=== PATIENT | male | born 1980 | race Caucasian/White ===

== ENCOUNTER 2016-12-03 08:23 | Inpatient (IN) | payer MEDICAID, OTHER ==
[~2016-12-03] VITALS: Ht 201.9 cm; Wt 158.8 kg
[2016-12-03] MEDS ORDERED: METHYLPREDNISOLONE SOD SUCC 125 MG/2 ML VIAL IV STA (09:06)
[2016-12-03] MEDS ORDERED: IPRATROPIUM/ALBUTEROL 0.5-3(2.5)MG/3ML NEB HHN ONE ×2 (09:15→10:00)
[2016-12-03 09:25] LABS: BASOPHILS % 0.5 % (0.0-2.0); EOSINOPHILS % 1.5 % (0.0-5.0); HEMATOCRIT. 45.4 % (42.0-52.0); HEMOGLOBIN. 14.8 g/dL (14.0-18.0); LYMPHOCYTES % 9.6 % (20.0-50.0); MEAN CORPUSCULAR HEMOGLOBIN 27.1 pg (28.0-32.0); MEAN CORPUSCULAR VOLUME 83.1 fL (80.0-94.0); MONOCYTES % 7.9 % (2.0-8.0); NEUTROPHILS % 80.5 % (40.0-76.0); PLATELET 220 x1000/uL (130-400); RED BLOOD CELL COUNT 5.47 mill/uL (4.7-6.1); RED CELL DISTRIBUTION WIDTH 15.6 % (11.6-14.6)
[2016-12-03 09:33] LABS: INR 1.1; PROTHROMBIN TIME 11.4 sec (9.4-11.6)
[2016-12-03 09:42] LABS: CARBON DIOXIDE 34 mEq/L (21-32); CHLORIDE 102 mEq/L (98-107)
[2016-12-03] MEDS ORDERED: MAGNESIUM 2 G PREMIX 50 ML IV ONE (10:15)
[2016-12-03 10:46] LABS: CLARITY URINE CLEAR (CLEAR); COLOR URINE YELLOW (YELLOW); GLUCOSE URINE NEGATIVE (NEGATIVE); KETONES URINE TRACE (NEGATIVE); LEUKOCYTE ESTERASE URINE TRACE (NEGATIVE); NITRITE URINE NEGATIVE (NEGATIVE); OCCULT BLOOD URINE NEGATIVE (NEGATIVE); PH URINE 7.5 (4.5-8.0); PROTEIN URINE TRACE (NEGATIVE); SPECIFIC GRAVITY URINE 1.024 (1.005-1.030)
[2016-12-03] MEDS ORDERED: SODIUM CHLORIDE 0.9% 1,000 ML IV ONE (11:18)
[2016-12-03] MEDS ORDERED: ALBUTEROL (0.083%) 2.5MG/3ML NEB HHN STA (11:18)
[2016-12-03] MEDS ORDERED: AZITHROMYCIN 500 MG in DEXT 5% WATER 250 ML IV ONE (11:30)
[2016-12-03] MEDS ORDERED: CEFTRIAXONE 1 G PREMIX 50 ML IV ONE (11:30)
[2016-12-03 12:39] LABS: BG BASE EXCESS 5.1 mmol/L (-2.0-2.0); BG CARBOXYHEMOGLOBIN 1.4 % (0.5-1.5); BG DEOXYHEMOGLOBIN 6.9 % (0.0-5.0); BG FRACTION INSPIRED OXYGEN 28; BG HCO3 ACT 31.5 mmol/L (22.0-26.0); BG METHEMOGLOBIN 0.3 % (0.0-1.5); BG OXYHEMOGLOBIN 91.4 % (94.0-97.0); BG PCO2 52.9 mmHg (35.0-45.0); BG PH 7.393 (7.350-7.450); BG PO2 62.7 mmHg (75.0-100.0); BG SAMPLE SITE RIGHT BRACHIAL; BG TOTAL HEMOGLOBIN 15.9 g/dL (12.0-18.0); BG VENT MODE NASAL CANNULA
[2016-12-03] MEDS ORDERED: ASPIRIN 81MG TABLET PO ONE (14:00)
[2016-12-03] MEDS ORDERED: DOCUSATE SODIUM 100MG CAPSULE PO PRN (17:30)
[2016-12-03] MEDS ORDERED: LORAZEPAM 2MG/ML CPJ IV PRN (17:30)
[2016-12-03] MEDS ORDERED: ONDANSETRON HCL 4MG/2ML VIAL IV PRN (17:30)
[2016-12-03] MEDS ORDERED: MAGNESIUM/ALUMINUM HYDROXIDE/SIMETHICONE 30ML UDC PO PRN (17:30)
[2016-12-03] MEDS ORDERED: NITROGLYCERIN 0.4MG TABLET SL SL PRN (17:30)
[2016-12-03] MEDS ORDERED: IPRATROPIUM/ALBUTEROL 0.5-3(2.5)MG/3ML NEB INH PRN (17:30)
[2016-12-03] MEDS ORDERED: CLONIDINE 0.1MG TABLET PO PRN (17:30)
[2016-12-03] MEDS ORDERED: DIPHENHYDRAMINE 50MG/ML VIAL IV PRN (17:30)
[2016-12-03] MEDS ORDERED: GUAIFENESIN 200MG/10ML SUGAR FREE UDC PO PRN (17:30)
[2016-12-03] MEDS ORDERED: KETOROLAC 15MG/ML VIAL IV PRN (18:00)
[2016-12-03] MEDS ORDERED: TRAMADOL 50MG TABLET PO PRN (19:30)
[2016-12-03 19:35] LABS: ETHANOL BLOOD < 10 mg/dL; HDL CHOLESTEROL 28 mg/dL (40-59); LDL CHOLESTEROL 80 mg/dL (5-100)
[2016-12-03 20:00] VITALS: BP 123/70
[2016-12-03] MEDS ORDERED: NA PHOS,M-B/NA PHOS,DI-BA ENEMA 118ML PR PRN (20:00)
[2016-12-03] MEDS ORDERED: ZOLPIDEM TARTRATE 5MG TABLET PO PRN (20:30)
[2016-12-03] MEDS: IPRATROPIUM/ALBUTEROL 0.5-3(2.5)MG/3ML NEB HHN SCH (21:41)
[2016-12-03] MEDS: METHYLPREDNISOLONE SOD SUCC 125 MG/2 ML VIAL IV SCH (22:43)
[2016-12-03] MEDS: FAMOTIDINE 20MG/2ML VIAL IV SCH (22:44)
[2016-12-03 23:05] VITALS: BP 123/70
[2016-12-03 23:40] LABS: CREATINE KINASE MB FRACTION 1.8 ng/mL (0.5-3.6); TROPONIN I 0.03 ng/mL (0.00-0.04)
[2016-12-03] MEDS ORDERED: ECON15CR11 TP (23:46)
[2016-12-03] MEDS ORDERED: PSYL540P PO (23:46)
[2016-12-03] MEDS ORDERED: FLUO40CA49 PO (23:46)
[2016-12-03] MEDS ORDERED: FISH1CAP2 PO (23:46)
[2016-12-03] MEDS ORDERED: OMEP20CA10 PO (23:46)
[2016-12-03] MEDS ORDERED: DOCU-150 PO (23:46)
[2016-12-03] MEDS ORDERED: SIMV10TA6 PO (23:46)
[2016-12-03] MEDS ORDERED: CLOZ100T31 PO (23:46)
[2016-12-03] MEDS ORDERED: TERB12GE TP (23:46)
[2016-12-03] MEDS ORDERED: LITH600C PO (23:46)
[2016-12-03] MEDS ORDERED: LACT10SO6 MT (23:46)
[2016-12-03] MEDS ORDERED: ENAL5TAB PO (23:46)
[2016-12-03] MEDS ORDERED: METF10002 PO (23:46)
[2016-12-03] MEDS ORDERED: ALBU90AE IH (23:46)
[2016-12-04] VITALS: BP 110/71
[2016-12-04 00:24] VITALS: BP 110/71
[2016-12-04] MEDS: IPRATROPIUM/ALBUTEROL 0.5-3(2.5)MG/3ML NEB HHN SCH ×4 (01:14→12:25)
[2016-12-04 04:00] VITALS: BP 115/81
[2016-12-04] MEDS: METHYLPREDNISOLONE SOD SUCC 125 MG/2 ML VIAL IV SCH (05:04)
[2016-12-04 07:17] LABS: CREATINE KINASE 53 IU/L (39-308); CREATINE KINASE MB FRACTION 1.5 ng/mL (0.5-3.6); TROPONIN I < 0.02 ng/mL (0.00-0.04)
[2016-12-04 07:59] LABS: *AMPHETAMINES SCREEN URINE NEGATIVE (NEGATIVE); *BARBITURATES SCREEN URINE NEGATIVE (NEGATIVE); *BENZODIAZEPINES SCREEN URINE NEGATIVE (NEGATIVE); *COCAINE SCREEN URINE NEGATIVE (NEGATIVE); CANNABINOID URINE SCREEN NEGATIVE (NEGATIVE); METHADONE URINE SCREEN NEGATIVE (NEGATIVE); OPIATES URINE SCREEN NEGATIVE (NEGATIVE); PHENCYCLIDINE URINE SCREEN NEGATIVE (NEGATIVE)
[2016-12-04 08:00] VITALS: BP 133/75
[2016-12-04] MEDS ORDERED: ENOXAPARIN 40MG/0.4ML SYR SUBCUT SCH (09:00)
[2016-12-04] MEDS ORDERED: ASPIRIN 325MG EC TABLET PO SCH (09:00)
[2016-12-04] MEDS: FAMOTIDINE 20MG/2ML VIAL IV SCH (10:50)
[2016-12-04 11:37] VITALS: BP 133/75
[2016-12-04] MEDS ORDERED: CEFTRIAXONE 1 G PREMIX 50 ML IV SCH (12:00)
[2016-12-04 12:18] VITALS: BP 146/89
[2016-12-04] MEDS ORDERED: AZITHROMYCIN 500 MG in DEXT 5% WATER 250 ML IV SCH (13:00)
== END 2016-12-04 12:45 | disposition home or self-care (01) | DRG 140 ==
LOC: ER 08:23 → 6WST 14:25 → ENRESERV 19:05
PROVIDERS: ADMIT Internal Medicine; ATTEND Internal Medicine
DX: J44.1 Chronic obstructive pulmonary disease with (acute) exacerbation (principal); J45.901 Unspecified asthma with (acute) exacerbation; I10 Essential (primary) hypertension; N39.0 Urinary tract infection, site not specified; F79 Unspecified intellectual disabilities; F20.9 Schizophrenia, unspecified; F17.200 Nicotine dependence, unspecified, uncomplicated; Z88.6 Allergy status to analgesic agent; Z88.8 Allergy status to other drugs, medicaments and biological substances
CPT/HCPCS: 36415; 36600; 71010; 80053; 80061; 80305; 81001; 82375; 82550; 82553; 82805; 83036; 83605; 83880; 84484; 85025; 85610; 87040; 87086; 93005; 94640; 96365; 96366; 96368; 96375; 99285; G0482; J0456; J0696; J1650; J2930; J3475; J3490; J7030; J7060; J7611; J7620; A4315

== ENCOUNTER 2017-10-05 09:29 | Inpatient (IN) | payer SELFPAY ==
[~2017-10-05] VITALS: Ht 200.7 cm; Wt 164.2 kg
[~2017-10-05 09:29] MED LIST: ALBU90AE IH; CLOZ100T31 PO; DOCU-150 PO; ECON15CR11 TP; ENAL5TAB PO; FISH1CAP2 PO; FLUO40CA49 PO; LACT10SO6 MT; LITH600C PO; METF10004 PO; OMEP20CA10 PO; PSYL540P PO; SIMV10TA6 PO; TERB12GE TP
[2017-10-05 10:13] LABS: BASOPHILS % 1.2 % (0.0-2.0); EOSINOPHILS % 2.8 % (0.0-5.0); HEMATOCRIT. 46.9 % (42.0-52.0); HEMOGLOBIN. 15.6 g/dL (14.0-18.0); LYMPHOCYTES % 17.5 % (20.0-50.0); MEAN CORPUSCULAR HEMOGLOBIN 28.2 pg (28.0-32.0); MEAN CORPUSCULAR VOLUME 84.9 fL (80.0-94.0); MEAN PLATELET VOLUME 8.8 fl (7.4-10.4); MONOCYTES % 6.2 % (2.0-8.0); NEUTROPHILS % 72.3 % (40.0-76.0); PLATELET 237 x1000/uL (130-400); RED BLOOD CELL COUNT 5.53 mill/uL (4.7-6.1); RED CELL DISTRIBUTION WIDTH 15.5 % (11.6-14.6)
[2017-10-05 10:21] LABS: PROTHROMBIN TIME 10.7 sec (9.4-11.6)
[2017-10-05 10:22] LABS: CHLORIDE 108 mEq/L (98-107)
[2017-10-05] MEDS ORDERED: IPRATROPIUM BROMIDE (0.02%) 0.5MG/2.5ML NEB HHN STA (11:42)
[2017-10-05] MEDS ORDERED: LACTULOSE 20G/30ML UDC PO ONE (11:45)
[2017-10-05] MEDS: ENALAPRIL 5MG TABLET PO SCH ×2 (13:50→21:39)
[2017-10-05] MEDS ORDERED: CLONIDINE 0.1MG TABLET PO PRN (17:45)
[2017-10-05] MEDS ORDERED: GUAIFENESIN 200MG/10ML SUGAR FREE UDC PO PRN (17:45)
[2017-10-05] MEDS ORDERED: LORAZEPAM 2MG/ML CPJ IV PRN (17:45)
[2017-10-05] MEDS ORDERED: DIPHENHYDRAMINE 50MG/ML VIAL IV PRN (17:45)
[2017-10-05] MEDS ORDERED: ONDANSETRON HCL 4MG/2ML VIAL IV PRN ×2 (17:45→20:00)
[2017-10-05] MEDS ORDERED: DEXTROSE 50% WATER 50ML SYRINGE IV PRN (17:45)
[2017-10-05] MEDS ORDERED: MAGNESIUM/ALUMINUM HYDROXIDE/SIMETHICONE 30ML UDC PO PRN (17:45)
[2017-10-05] MEDS ORDERED: IPRATROPIUM/ALBUTEROL 0.5-3(2.5)MG/3ML NEB INH PRN (17:45)
[2017-10-05 20:00] VITALS: BP 123/85
[2017-10-05] MEDS ORDERED: ONDANSETRON 4MG ODT PO PRN (20:15)
[2017-10-05 21:00] VITALS: BP 123/85
[2017-10-05] MEDS ORDERED: ENALAPRIL 5MG TABLET PO SCH (21:00)
[2017-10-05] MEDS: INSULIN LISPRO 100 UNITS/ML SUBCUT SCH (21:00)
[2017-10-05] MEDS: BLOOD SUGAR DIAGNOSTIC STRIP TEST SCH (21:20)
[2017-10-05] MEDS: SODIUM CHLORIDE 0.9% INJ 3ML FLUSH IVF SCH (21:40)
[2017-10-06] VITALS: BP 118/77
[2017-10-06 04:00] VITALS: BP 143/70
[2017-10-06] MEDS: INSULIN LISPRO 100 UNITS/ML SUBCUT SCH ×2 (06:33→12:15)
[2017-10-06] MEDS: BLOOD SUGAR DIAGNOSTIC STRIP TEST SCH ×3 (06:33→16:45)
[2017-10-06] MEDS: SODIUM CHLORIDE 0.9% INJ 3ML FLUSH IVF SCH ×2 (06:59→12:19)
[2017-10-06 08:00] VITALS: BP 126/88
[2017-10-06] MEDS: ENALAPRIL 5MG TABLET PO SCH ×2 (08:40→12:11)
[2017-10-06] MEDS ORDERED: FLUOXETINE HCL 20MG CAPSULE PO SCH (09:00)
[2017-10-06 12:00] VITALS: BP_SYST 129; BP_SYST 134; BP_SYST 149; BP_DIAS 68; BP_DIAS 76; BP_DIAS 79
[2017-10-06 16:03] VITALS: BP 124/73
[2017-10-06 16:56] VITALS: BP 124/73
== END 2017-10-06 17:35 | disposition home or self-care (01) | DRG 48 ==
LOC: ER 09:35 → 5WST 11:55 → ENRESERV 15:49 → ER 19:53
PROVIDERS: ADMIT Internal Medicine; ATTEND Internal Medicine
DX: G90.8 Other disorders of autonomic nervous system (principal); I10 Essential (primary) hypertension; E11.9 Type 2 diabetes mellitus without complications; E78.00 Pure hypercholesterolemia, unspecified; K59.00 Constipation, unspecified; J44.9 Chronic obstructive pulmonary disease, unspecified; Z72.0 Tobacco use; Z88.6 Allergy status to analgesic agent; Z88.8 Allergy status to other drugs, medicaments and biological substances; Z86.19 Personal history of other infectious and parasitic diseases; Z79.899 Other long term (current) drug therapy
CPT/HCPCS: 36415; 70450; 71045; 72125; 73600; 80053; 82962; 83036; 83880; 84484; 85025; 85610; 93005; 93970; 99285

== ENCOUNTER 2019-10-21 15:29 | Inpatient (IN) | payer MEDICAID ==
[~2019-10-21] VITALS: Ht 205.7 cm; Wt 137.4 kg
[~2019-10-21 15:29] MED LIST changes: -ECON15CR11 TP; +ECON15CR4 TP; +METF-416 PO; -METF10004 PO; -OMEP20CA10 PO; +OMEP20CA14 PO; -SIMV10TA6 PO; +SIMV10TA97 PO
[2019-10-21] MEDS ORDERED: ONDANSETRON HCL 4MG/2ML INJ IV STA (16:11)
[2019-10-21] MEDS ORDERED: SODIUM CHLORIDE 0.9% 1,000 ML IV ONE (16:11)
[2019-10-21] MEDS ORDERED: FAMOTIDINE 20MG/2ML VIAL IV ONE (17:15)
[2019-10-21 17:46] LABS: HEMOGLOBIN. 15.6 g/dL (14.0-18.0); MEAN CORPUSCULAR HEMOGLOBIN 28.5 pg (28.0-32.0); MEAN CORPUSCULAR VOLUME 86.1 fL (80.0-94.0); MEAN PLATELET VOLUME 8.9 fl (7.4-10.4); PLATELET 248 x1000/uL (130-400); RED BLOOD CELL COUNT 5.46 mill/uL (4.7-6.1); RED CELL DISTRIBUTION WIDTH 14.5 % (11.6-14.6)
[2019-10-21 17:55] LABS: CHLORIDE 108 mEq/L (98-107)
[2019-10-21 17:56] LABS: D-DIMER 1.3 mg/L FEU (<0.50); INR 1.1; PROTHROMBIN TIME 11.9 sec (9.6-11.0)
[2019-10-21 18:18] LABS: PLATELET ESTIMATE NORMAL
[2019-10-21 18:32] LABS: ETHANOL BLOOD < 10 mg/dL
[2019-10-21 18:36] LABS: CREATINE KINASE 54 IU/L (39-308)
[2019-10-21] MEDS ORDERED: PIPERACILLIN/TAZ 3.375G PREMIX 50 ML IV ONE (19:45)
[2019-10-21] MEDS: ONDANSETRON HCL 4MG/2ML INJ IV PRN (20:50)
[2019-10-21] MEDS ORDERED: FAMOTIDINE 20MG TABLET PO SCH (21:00)
[2019-10-22 05:33] LABS: CLARITY URINE CLEAR (CLEAR); COLOR URINE YELLOW (YELLOW); KETONES URINE TRACE (NEGATIVE); LEUKOCYTE ESTERASE URINE 1+ (NEGATIVE); NITRITE URINE NEGATIVE (NEGATIVE); OCCULT BLOOD URINE NEGATIVE (NEGATIVE); PH URINE 8.5 (4.5-8.0); PROTEIN URINE TRACE (NEGATIVE); SPECIFIC GRAVITY URINE 1.021 (1.005-1.030)
[2019-10-22] MEDS: ONDANSETRON HCL 4MG/2ML INJ IV PRN (05:42)
[2019-10-22 05:45] VITALS: BP 135/78
[2019-10-22 05:46] VITALS: BP 135/78
[2019-10-22 05:49] LABS: *AMPHETAMINES SCREEN URINE NEGATIVE (NEGATIVE)
[2019-10-22 05:50] LABS: *BARBITURATES SCREEN URINE NEGATIVE (NEGATIVE); *BENZODIAZEPINES SCREEN URINE NEGATIVE (NEGATIVE); *COCAINE SCREEN URINE NEGATIVE (NEGATIVE); CANNABINOID URINE SCREEN NEGATIVE (NEGATIVE); METHADONE URINE SCREEN NEGATIVE (NEGATIVE); OPIATES URINE SCREEN NEGATIVE (NEGATIVE); PHENCYCLIDINE URINE SCREEN NEGATIVE (NEGATIVE)
[2019-10-22] MEDS ORDERED: ATROV INH (06:16)
[2019-10-22] MEDS ORDERED: BECL10.62 INH (06:16)
[2019-10-22] MEDS ORDERED: MELA3TAB71 MT (06:16)
[2019-10-22] MEDS ORDERED: CLOZ100T31 MT (06:17)
[2019-10-22 08:00] VITALS: BP 130/74
[2019-10-22 09:22] LABS: HEMATOCRIT. 47.8 % (42.0-52.0); MEAN CORPUSCULAR HEMOGLOBIN 28.9 pg (28.0-32.0); MEAN CORPUSCULAR VOLUME 86.2 fL (80.0-94.0); MEAN PLATELET VOLUME 8.8 fl (7.4-10.4); PLATELET 252 x1000/uL (130-400); RED BLOOD CELL COUNT 5.54 mill/uL (4.7-6.1); RED CELL DISTRIBUTION WIDTH 14.5 % (11.6-14.6)
[2019-10-22 09:34] LABS: CHLORIDE 108 mEq/L (98-107)
[2019-10-22] MEDS: PANTOPRAZOLE SODIUM 40 MG/VIAL IV SCH (10:24)
[2019-10-22] MEDS: PIPERACILLIN/TAZOBACTAM 3.375 G in DEXT 5% WATER 100 ML IV SCH ×3 (10:24→21:30)
[2019-10-22] MEDS: ENOXAPARIN 150MG/ML SYR SUBCUT SCH ×2 (10:24→21:30)
[2019-10-22 12:00] VITALS: BP 141/81
[2019-10-22 12:16] LABS: PLATELET ESTIMATE NORMAL
[2019-10-22 16:00] VITALS: BP 131/79
[2019-10-22 20:00] VITALS: BP 132/77
[2019-10-22] MEDS ORDERED: IOHEXOL-350 100 ML BOTTLE ONE (23:17)
[2019-10-23] VITALS (7 sets, daily range): BP systolic 99–132; BP diastolic 43–86
[2019-10-23] MEDS: PIPERACILLIN/TAZOBACTAM 3.375 G in DEXT 5% WATER 100 ML IV SCH ×3 (04:40→16:00)
[2019-10-23 06:49] LABS: BASOPHILS % 0.9 % (0.0-2.0); EOSINOPHILS % 2.1 % (0.0-5.0); HEMATOCRIT. 41.6 % (42.0-52.0); HEMOGLOBIN. 14.2 g/dL (14.0-18.0); LYMPHOCYTES % 24.7 % (20.0-50.0); MEAN CORPUSCULAR HEMOGLOBIN 29.1 pg (28.0-32.0); MEAN CORPUSCULAR VOLUME 85.4 fL (80.0-94.0); MEAN PLATELET VOLUME 8.7 fl (7.4-10.4); MONOCYTES % 10.6 % (2.0-8.0); NEUTROPHILS % 61.7 % (40.0-76.0); PLATELET 229 x1000/uL (130-400); RED BLOOD CELL COUNT 4.87 mill/uL (4.7-6.1); RED CELL DISTRIBUTION WIDTH 14.1 % (11.6-14.6)
[2019-10-23 07:14] LABS: CHLORIDE 111 mEq/L (98-107)
[2019-10-23] MEDS: PANTOPRAZOLE SODIUM 40 MG/VIAL IV SCH (10:31)
[2019-10-23] MEDS: ENOXAPARIN 150MG/ML SYR SUBCUT SCH (13:39)
[2019-10-23] MEDS ORDERED: FAMOTIDINE 20MG/2ML VIAL IV SCH (21:00)
== END 2019-10-23 21:10 | disposition home health service (06) | DRG 720 ==
LOC: ER 15:34 → EDBEDREQTM 18:07 → EDBEDREQ 18:07 → MICUSO 18:41 → EDBEDREQ 18:48 → EDBEDREQTM 18:48 → 7WST 10-22 03:24 → 5WST 10-22 13:38
PROVIDERS: ADMIT Internal Medicine; ATTEND Internal Medicine
DX: A41.9 Sepsis, unspecified organism (principal); E87.8 Other disorders of electrolyte and fluid balance, not elsewhere classified; J44.1 Chronic obstructive pulmonary disease with (acute) exacerbation; B19.10 Unspecified viral hepatitis B without hepatic coma; J96.00 Acute respiratory failure, unspecified whether with hypoxia or hypercapnia; K74.60 Unspecified cirrhosis of liver; R18.8 Other ascites; E11.9 Type 2 diabetes mellitus without complications; B19.20 Unspecified viral hepatitis C without hepatic coma; E78.5 Hyperlipidemia, unspecified; I10 Essential (primary) hypertension; Z20.828 Contact with and (suspected) exposure to other viral communicable diseases; K52.9 Noninfective gastroenteritis and colitis, unspecified; Z88.6 Allergy status to analgesic agent; Z88.8 Allergy status to other drugs, medicaments and biological substances; Z79.899 Other long term (current) drug therapy; N39.0 Urinary tract infection, site not specified; K56.7 Ileus, unspecified
CPT/HCPCS: 36415; 71045; 71275; 74176; 80048; 80053; 80305; 80320; 81003; 82550; 82728; 82962; 83605; 83615; 83880; 84145; 84484; 85025; 85379; 85384; 86140; 87635; 87804; 93005; 93970; 99285; C9113; J1650; J2405; J2543; J3490; J7030; J7060; Q9967; G0480

== ENCOUNTER 2022-04-29 14:43 | Inpatient (IN) | payer MEDICAID ==
[~2022-04-29] VITALS: Ht 200.7 cm; Wt 127.9 kg
[~2022-04-29 14:43] MED LIST changes: +ATROV INH; +BECL10.62 INH; +CLOZ100T13 MT; +CLOZ100T13 PO; -CLOZ100T31 PO; -ENAL5TAB PO; +ENAL5TAB21 PO; +MELA3TAB71 MT
[2022-04-29] MEDS ORDERED: ONDANSETRON HCL 4MG/2ML INJ IV ONE (17:30)
[2022-04-29] MEDS ORDERED: SODIUM CHLORIDE 0.9% 1,000 ML IV ONE (17:30)
[2022-04-29] MEDS ORDERED: MORPHINE SULFATE 2 MG/ML CPJ (NOT FOR IM USE) IV ONE (17:30)
[2022-04-29 18:16] LABS: HEMOGLOBIN. 17.9 g/dL (14.0-18.0); MEAN CORPUSCULAR HEMOGLOBIN 29.5 pg (28.0-32.0); MEAN CORPUSCULAR VOLUME 87.3 fL (80.0-94.0); MEAN PLATELET VOLUME 8.9 fl (7.4-10.4); PLATELET 256 x1000/uL (130-400); RED BLOOD CELL COUNT 6.07 mill/uL (4.7-6.1); RED CELL DISTRIBUTION WIDTH 14.7 % (11.6-14.6)
[2022-04-29 18:18] LABS: CHLORIDE 108 mEq/L (98-107)
[2022-04-29] MEDS ORDERED: PIPERACILLIN/TAZ 3.375G PREMIX 50 ML IV NR (18:45)
[2022-04-29] MEDS ORDERED: PIPERACILLIN/TAZOBACTAM 3.375GM/50ML PREMIX IV ONE (18:45)
[2022-04-29 19:38] LABS: PLATELET ESTIMATE NORMAL
[2022-04-29] MEDS ORDERED: MORPHINE SULFATE 4 MG/ML CPJ (NOT FOR IM USE) IV ONE (19:45)
[2022-04-30] MEDS ORDERED: ONDANSETRON HCL 4MG/2ML INJ ONE (00:41)
[2022-04-30] MEDS ORDERED: MORPHINE SULFATE 4 MG/ML CPJ (NOT FOR IM USE) IV NR (00:45)
[2022-04-30] MEDS ORDERED: SODIUM CHLORIDE 0.9% 100 ML IV ONE (01:00)
[2022-04-30] MEDS ORDERED: ONDANSETRON HCL 4MG/2ML INJ IV ONE (01:00)
[2022-04-30 08:00] VITALS: BP 115/67
[2022-04-30 09:27] VITALS: BP 115/67
[2022-04-30 10:12] LABS: BASOPHILS % 0.1 % (0.0-2.0); EOSINOPHILS % 0.5 % (0.0-5.0); HEMATOCRIT. 48.7 % (42.0-52.0); HEMOGLOBIN. 16.5 g/dL (14.0-18.0); LYMPHOCYTES % 9.2 % (20.0-50.0); MEAN CORPUSCULAR HEMOGLOBIN 29.8 pg (28.0-32.0); MEAN CORPUSCULAR VOLUME 88.2 fL (80.0-94.0); MEAN PLATELET VOLUME 8.5 fl (7.4-10.4); MONOCYTES % 10.9 % (2.0-8.0); NEUTROPHILS % 79.3 % (40.0-76.0); PLATELET 247 x1000/uL (130-400); RED BLOOD CELL COUNT 5.52 mill/uL (4.7-6.1); RED CELL DISTRIBUTION WIDTH 14.5 % (11.6-14.6)
[2022-04-30 12:00] VITALS: BP 140/89
[2022-04-30] MEDS: DEXT 5%/0.45% NACL 1000ML 1,000 ML IV SCH ×2 (12:30→21:09)
[2022-04-30] MEDS ORDERED: ACETAMINOPHEN 325MG TABLET PO PRN (12:30)
[2022-04-30] MEDS ORDERED: PIPERACILLIN/TAZ 3.375G PREMIX 50 ML IV SCH (12:30)
[2022-04-30] MEDS ORDERED: IPRATROPIUM/ALBUTEROL 0.5-3(2.5)MG/3ML NEB NEB PRN ×2 (12:30)
[2022-04-30] MEDS ORDERED: ONDANSETRON HCL 4MG/2ML INJ IV PRN (12:30)
[2022-04-30] MEDS ORDERED: ALBUTEROL (0.083%) 2.5MG/3ML NEB HHN PRN (13:00)
[2022-04-30] MEDS ORDERED: NALOXONE HCL 0.4MG/ML VIAL IV PRN (13:00)
[2022-04-30] MEDS ORDERED: IPRATROPIUM BROMIDE (0.02%) 0.5MG/2.5ML NEB HHN PRN (13:00)
[2022-04-30] MEDS ORDERED: DEXTROSE 50% WATER 50ML SYRINGE IV PRN (13:00)
[2022-04-30 16:00] VITALS: BP 117/66
[2022-04-30] MEDS: PIPERACILLIN/TAZOBACTAM 3.375G in DEXT 5% WATER 50ML IV SCH ×2 (16:04→21:08)
[2022-04-30] MEDS: ENOXAPARIN 30MG/0.3ML SYR SUBCUT SCH ×2 (16:05→22:51)
[2022-04-30] MEDS: BLOOD SUGAR DIAGNOSTIC STRIP TEST SCH ×2 (17:20→21:07)
[2022-04-30] MEDS: INSULIN LISPRO 100 UNITS/ML SUBCUT SCH ×2 (17:50→21:00)
[2022-04-30 20:00] VITALS: BP 130/80
[2022-05-01] VITALS (7 sets, daily range): BP systolic 114–135; BP diastolic 66–85
[2022-05-01] MEDS: DEXT 5%/0.45% NACL 1000ML 1,000 ML IV SCH ×2 (04:30→12:30)
[2022-05-01] MEDS: PIPERACILLIN/TAZOBACTAM 3.375G in DEXT 5% WATER 50ML IV SCH ×2 (05:36→17:50)
[2022-05-01] MEDS: BLOOD SUGAR DIAGNOSTIC STRIP TEST SCH ×3 (06:26→18:01)
[2022-05-01 07:06] LABS: BASOPHILS % 0.6 % (0.0-2.0); EOSINOPHILS % 1.8 % (0.0-5.0); LYMPHOCYTES % 18.7 % (20.0-50.0); MEAN CORPUSCULAR HEMOGLOBIN 29.8 pg (28.0-32.0); MEAN CORPUSCULAR VOLUME 89.1 fL (80.0-94.0); MONOCYTES % 11.3 % (2.0-8.0); NEUTROPHILS % 67.6 % (40.0-76.0); PLATELET 218 x1000/uL (130-400); RED BLOOD CELL COUNT 5.05 mill/uL (4.7-6.1); RED CELL DISTRIBUTION WIDTH 14.3 % (11.6-14.6)
[2022-05-01] MEDS: INSULIN LISPRO 100 UNITS/ML SUBCUT SCH ×3 (07:45→17:50)
[2022-05-01 07:50] LABS: CHLORIDE 117 mEq/L (98-107)
[2022-05-01] MEDS: ENOXAPARIN 30MG/0.3ML SYR SUBCUT SCH (08:43)
[2022-05-01] MEDS ORDERED: PANTOPRAZOLE SODIUM 40 MG/VIAL IV SCH (09:00)
[2022-05-01] MEDS ORDERED: LEVO-65 MT (17:33)
== END 2022-05-01 20:10 | disposition home or self-care (01) | DRG 247 ==
LOC: ER 14:43 → 6EST 22:55 → EDBEDREQ 22:58 → EDBEDREQTM 22:58
PROVIDERS: ADMIT Internal Medicine; ATTEND Internal Medicine
DX: K56.609 Unspecified intestinal obstruction, unspecified as to partial versus complete obstruction (principal); R65.10 Systemic inflammatory response syndrome (SIRS) of non-infectious origin without acute organ dysfunction; E11.9 Type 2 diabetes mellitus without complications; I10 Essential (primary) hypertension; F17.210 Nicotine dependence, cigarettes, uncomplicated; J44.9 Chronic obstructive pulmonary disease, unspecified; K21.9 Gastro-esophageal reflux disease without esophagitis; Z88.8 Allergy status to other drugs, medicaments and biological substances; Z79.899 Other long term (current) drug therapy
CPT/HCPCS: 36415; 71045; 74018; 74176; 80053; 82962; 83036; 85025; 93970; 99291; C9113; J1650; J2270; J2405; J2543; J7030; J7050; J7060

== ENCOUNTER 2024-11-17 15:48 | Emergency (ER) | payer MEDICAID ==
[~2024-11-17] VITALS: Ht 200.7 cm; Wt 122.0 kg
[~2024-11-17 15:48] MED LIST changes: -DOCU-150 PO; +DOCU-422 PO; +ENAL-75 PO; -ENAL5TAB21 PO; +LACT-394 MT; -LACT10SO6 MT; +LEVO-65 MT
[2024-11-17 15:59] VITALS: O2SAT 96
[2024-11-17 16:25] LABS: BASOPHILS % 1.2 % (0.0-2.0); EOSINOPHILS % 1.2 % (0.0-5.0); HEMATOCRIT. 43.9 % (42.0-52.0); HEMOGLOBIN. 14.9 g/dL (14.0-18.0); LYMPHOCYTES % 22.0 % (20.0-50.0); MEAN PLATELET VOLUME 8.0 fl (7.4-10.4); MONOCYTES % 9.0 % (2.0-8.0); NEUTROPHILS % 66.6 % (40.0-76.0); PLATELET 203 x1000/uL (130-400); RED BLOOD CELL COUNT 5.03 mill/uL (4.7-6.1); RED CELL DISTRIBUTION WIDTH 14.7 % (11.6-14.6)
[2024-11-17 16:38] LABS: CREATININE 1.0 mg/dL (0.6-1.3); UREA NITROGEN BLOOD 10 mg/dL (9-23)
[2024-11-17] MEDS ORDERED: MORPHINE SULFATE 4 MG/ML INJ (FOR IV/IM USE) IV SCH (18:00)
[2024-11-17] MEDS ORDERED: ONDANSETRON HCL 4MG/2ML INJ IV SCH (18:00)
[2024-11-17] MEDS: ONDANSETRON 4MG ODT PO ONE (18:39)
[2024-11-17] MEDS: OXYCODONE HCL 5MG TABLET PO ONE ×2 (18:53→21:44)
[2024-11-17] MEDS: DIATR MEGLU/DIATRIZOATE SOLN 30ML ONE (19:36)
[2024-11-17 23:02] VITALS: BP 124/74; PULSE 70; RESP 12; TEMP 36.9; O2SAT 96
[2024-11-18 16:26] LABS: CLARITY URINE CLEAR (CLEAR); COLOR URINE YELLOW (YELLOW); GLUCOSE URINE NEGATIVE (NEGATIVE); KETONES URINE NEGATIVE (NEGATIVE); LEUKOCYTE ESTERASE URINE NEGATIVE (NEGATIVE); NITRITE URINE NEGATIVE (NEGATIVE); OCCULT BLOOD URINE NEGATIVE (NEGATIVE); PH URINE 7.0 (4.5-8.0); PROTEIN URINE NEGATIVE (NEGATIVE); SPECIFIC GRAVITY URINE 1.006 (1.005-1.030); UROBILINOGEN URINE 0.2 E.U./dL (0.2-1.0)
[2024-11-18] MEDS ORDERED: HYDR453.3 TP (18:37)
== END 2024-11-17 23:11 | disposition home or self-care (01) ==
LOC: ER 15:48
DX: R10.31 Right lower quadrant pain (principal); J44.89 Other specified chronic obstructive pulmonary disease; F12.90 Cannabis use, unspecified, uncomplicated; Z79.899 Other long term (current) drug therapy; Z79.84 Long term (current) use of oral hypoglycemic drugs; Z79.51 Long term (current) use of inhaled steroids; Z91.018 Allergy to other foods; Z88.6 Allergy status to analgesic agent
CPT/HCPCS: 99284; 74176; 80048; 81003; 85025; 36415; Q0162; Q9963

== ENCOUNTER 2024-11-18 14:56 | Emergency (ER) | payer MEDICAID ==
[~2024-11-18] VITALS: Ht 200.7 cm; Wt 109.0 kg
[2024-11-18 15:08] VITALS: O2SAT 98
[2024-11-18 17:16] LABS: BASOPHILS % 1.4 % (0.0-2.0); EOSINOPHILS % 2.0 % (0.0-5.0); HEMATOCRIT. 44.7 % (42.0-52.0); HEMOGLOBIN. 15.3 g/dL (14.0-18.0); LYMPHOCYTES % 23.7 % (20.0-50.0); MEAN PLATELET VOLUME 8.2 fl (7.4-10.4); MONOCYTES % 10.2 % (2.0-8.0); NEUTROPHILS % 62.7 % (40.0-76.0); PLATELET 199 x1000/uL (130-400); RED BLOOD CELL COUNT 5.15 mill/uL (4.7-6.1); RED CELL DISTRIBUTION WIDTH 14.7 % (11.6-14.6)
[2024-11-18 17:29] LABS: CREATININE 1.0 mg/dL (0.6-1.3); UREA NITROGEN BLOOD 12 mg/dL (9-23)
[2024-11-18 17:31] LABS: ASPARTATE AMINOTRANSFERASE 28 IU/L (<34); BILIRUBIN TOTAL 0.6 mg/dL (0.1-1.0); PROTEIN TOTAL 7.4 g/dL (6.0-8.3)
[2024-11-18] MEDS ORDERED: HYDR453.3 TP (18:37)
[2024-11-18 18:52] VITALS: BP 132/80; PULSE 72; RESP 16; TEMP 36.7; O2SAT 100
== END 2024-11-18 18:53 | disposition home or self-care (01) ==
LOC: ER 14:56
DX: K62.5 Hemorrhage of anus and rectum (principal); J44.89 Other specified chronic obstructive pulmonary disease; F12.90 Cannabis use, unspecified, uncomplicated; Z79.51 Long term (current) use of inhaled steroids; Z79.84 Long term (current) use of oral hypoglycemic drugs; Z79.899 Other long term (current) drug therapy; Z88.6 Allergy status to analgesic agent; Z91.018 Allergy to other foods
CPT/HCPCS: 36415; 80053; 82270; 85025; 86850; 86900; 99283

== ENCOUNTER 2025-02-03 14:46 | Emergency (ER) | payer MEDICAID, OTHER ==
[~2025-02-03] VITALS: Ht 200.7 cm; Wt 130.0 kg
[~2025-02-03 14:46] MED LIST changes: +HYDR453.3 TP
[2025-02-03 15:02] VITALS: O2SAT 97
[2025-02-03 15:31] LABS: BASOPHILS % 0.8 % (0.0-2.0); EOSINOPHILS % 0.6 % (0.0-5.0); HEMATOCRIT. 48.3 % (42.0-52.0); HEMOGLOBIN. 16.0 g/dL (14.0-18.0); LYMPHOCYTES % 18.8 % (20.0-50.0); MEAN PLATELET VOLUME 8.0 fl (7.4-10.4); MONOCYTES % 9.1 % (2.0-8.0); NEUTROPHILS % 70.7 % (40.0-76.0); PLATELET 202 x1000/uL (130-400); RED BLOOD CELL COUNT 5.42 mill/uL (4.7-6.1); RED CELL DISTRIBUTION WIDTH 14.3 % (11.6-14.6)
[2025-02-03 15:47] LABS: CREATININE 0.9 mg/dL (0.6-1.3); UREA NITROGEN BLOOD 10 mg/dL (9-23)
[2025-02-03 15:48] LABS: ASPARTATE AMINOTRANSFERASE 25 IU/L (<34)
[2025-02-03 15:49] LABS: BILIRUBIN DIRECT 0.2 mg/dL (<=3.0); BILIRUBIN TOTAL 0.5 mg/dL (0.1-1.0); PROTEIN TOTAL 7.0 g/dL (6.0-8.3)
[2025-02-03 17:55] LABS: CLARITY URINE CLEAR (CLEAR); COLOR URINE YELLOW (YELLOW); GLUCOSE URINE NEGATIVE (NEGATIVE); KETONES URINE NEGATIVE (NEGATIVE); LEUKOCYTE ESTERASE URINE NEGATIVE (NEGATIVE); NITRITE URINE NEGATIVE (NEGATIVE); OCCULT BLOOD URINE NEGATIVE (NEGATIVE); PH URINE 6.0 (4.5-8.0); PROTEIN URINE NEGATIVE (NEGATIVE); SPECIFIC GRAVITY URINE 1.012 (1.005-1.030); UROBILINOGEN URINE 0.2 E.U./dL (0.2-1.0)
[2025-02-03] MEDS: SODIUM CHLORIDE 0.9% 1,000 ML IV ONE (22:21)
[2025-02-03] MEDS: MORPHINE SULFATE 4 MG/ML INJ (FOR IV/IM USE) IV ONE (22:52)
[2025-02-03] MEDS ORDERED: IOHEXOL-350 100 ML BOTTLE ONE (23:41)
[2025-02-04 00:13] VITALS: BP 132/86; PULSE 60; RESP 18; TEMP 36.9; O2SAT 97
== END 2025-02-04 00:21 | disposition short-term general hospital (02) ==
LOC: ER 14:46 → CMPBEDREQ 02-04 07:58
DX: K52.9 Noninfective gastroenteritis and colitis, unspecified (principal); Z91.018 Allergy to other foods; Z88.6 Allergy status to analgesic agent; F12.90 Cannabis use, unspecified, uncomplicated
CPT/HCPCS: 99285; 74177; 96374; 96361; 80076; 80048; 81003; 83690; 85025; 36415; Q9967; J2270; J7030